=== PATIENT | male | born 1975 ===

== ENCOUNTER 2018-01-21 22:18 | Emergency (ER) | payer OTHER ==
--- NOTE | 2018-01-22 00:12 | ED PDOC ---
HPI: Abdomen Time Seen by Provider: 01/21/18 22:28 Chief Complaint (Nursing): Abdominal Pain Chief Complaint (Provider): Abdominal Pain History Per: Patient History/Exam Limitations: no limitations Onset/Duration Of Symptoms: Days (x8) Current Symptoms Are (Timing): Still Present Location Of Pain/Discomfort: LLQ Additional Complaint(s): 42 y/o male presents to the ED complaining of constipation, onset eight days ago. Patient reports of taking some kind of liquid medication for symptoms yesterday. Patient had a little diarrhea but still feels constipated. Patient reports he has not had a bowel movement today. Patient also complains of suprapublic and left lower quadrant abdominal pain. Denies black or bloody stools, fever, chills, nausea, vomiting, decreased appetite, and urinary symptoms. PMD: None Provided Past Medical History Reviewed: Historical Data, Nursing Documentation, Vital Signs Vital Signs: Last Vital Signs Temp 97.9 F 01/22/18 01:24 Pulse 82 01/22/18 01:24 Resp 16 01/22/18 01:24 BP 138/78 01/22/18 01:24 Pulse Ox 97 01/22/18 04:26 - Medical History PMH: No Chronic Diseases - Surgical History Surgical History: No Surg Hx - Family History Family History: States: Unknown Family Hx - Social History Current smoker - smoking cessation education provided: No Alcohol: None Drugs: Denies - Home Medications Home Medications: Ambulatory Orders Medication Instructions Recorded Docusate Sodium [Dulcolax Stool 100 mg PO DAILY #12 capsule 01/22/18 Softener] Sod Phos,M-B/Na Phos,Di-Ba [Fleet 133 ml RC DAILY #5 enema 01/22/18 Enema] - Allergies Allergies/Adverse Reactions: Allergies Allergy/AdvReac Type Severity Reaction Status Date / Time No Known Allergies Allergy Verified 01/21/18 22:25 Review of Systems ROS Statement: Except As Marked, All Systems Reviewed And Found Negative (as per HPI) Constitutional: Negative for: Fever, Chills Gastrointestinal: Positive for: Diarrhea (1 episode), Constipation. Negative for: Nausea, Vomiting, Melena, Hematochezia, Other (decreased appetite ) Genitourinary Male: Negative for: Dysuria, Hematuria Physical Exam - Reviewed Nursing Documentation Reviewed: Yes Vital Signs Reviewed: Yes - Physical Exam Appears: Positive for: Non-toxic, No Acute Distress Head Exam: Positive for: ATRAUMATIC, NORMOCEPHALIC Skin: Positive for: Warm, Dry Cardiovascular/Chest: Positive for: Regular Rate, Rhythm. Negative for: Murmur Respiratory: Negative for: Accessory Muscle Use, Respiratory Distress Gastrointestinal/Abdominal: Positive for: Normal Exam, Bowel Sounds (normoactive ), Soft, Tenderness (to palpation in left lower quadrant ). Negative for: Mass , Distended, Guarding, Rebound Rectal: Positive for: Normal Exam (witnessed by JORDAN Kenny at bedside), Rectal Tone Is: (normal ). Negative for: Other (rectal impaction, No stool palpable ) Neurologic/Psych: Positive for: Alert. Negative for: Motor/Sensory Deficits - ECG O2 Sat by Pulse Oximetry: 97 (RA) Pulse Ox Interpretation: Normal Medical Decision Making Medical Decision Making: Time: 2331 Impression: Constipation Plan: -- Obstructive Series XR -- Abdominal Obstructive Series X-Ray demonstrates copious amounts throughout colon. No free air. No air fluid levels -- Fleet Enema 135 ml [place] ___ Scribe Attestation: Documented by Cornell Rodriguez acting as a scribe for Dr. Halle Reyes. Provider Scribe Attestation: All medical record entries made by the Scribe were at my direction and personally dictated by me. I have reviewed the chart and agree that the record accurately reflects my personal performance of the history, physical exam, medical decision making, and the department course for this patient. I have also personally directed, reviewed, and agree with the discharge instructions and disposition. Disposition - Clinical Impression Clinical Impression: Constipation - Disposition Disposition: Transfer of Care Disposition Time: 00:00 Condition: STABLE Prescriptions: Docusate Sodium [Dulcolax Stool Softener] 100 mg PO DAILY #12 capsule Sod Phos,M-B/Na Phos,Di-Ba [Fleet Enema] 133 ml RC DAILY #5 enema Print Language: ICELANDIC Patient Signed Over To: Vickey Cyr Handoff Comments: Pending relief of constipation
--- NOTE | 2018-01-22 01:06 | ED PDOC ---
- ECG O2 Sat by Pulse Oximetry: 97 (RA) Pulse Ox Interpretation: Normal Medical Decision Making Medical Decision Making: Time: 0000 -- Patient endorsed to me by Dr. Reyes, pending bowel movement. Time: 0117 -- Patient had three bowel movements and is feeling much better. Scribe Attestation: Documented by Cornell Rodriguez acting as a scribe for Dr. Vickey Cyr MD. Provider Scribe Attestation: All medical record entries made by the Scribe were at my direction and personally dictated by me. I have reviewed the chart and agree that the record accurately reflects my personal performance of the history, physical exam, medical decision making, and the department course for this patient. I have also personally directed, reviewed, and agree with the discharge instructions and disposition. Disposition - Clinical Impression Clinical Impression: Constipation - POA Present On Arrival: None - Disposition Referrals: [facility] [Outside] Disposition: Routine/Home Disposition Time: 01:17 Condition: IMPROVED Prescriptions: Docusate Sodium [Dulcolax Stool Softener] 100 mg PO DAILY #12 capsule Sod Phos,M-B/Na Phos,Di-Ba [Fleet Enema] 133 ml RC DAILY #5 enema Instructions: Constipation in Adults Forms: [facility] (Swedish) Print Language: URDU
[2018-01-22 01:25] VITALS: BP 138/78; PULSE 82; RESP 16; TEMP 97.9
[2018-01-22 04:26] VITALS: O2SAT 97
--- NOTE | 2018-01-22 08:26 | RAD ---
Date of service: 01/21/2018 PROCEDURE: Radiographs of the chest and abdomen (obstructive series) HISTORY: abd pain r/o sbo COMPARISON: No prior. TECHNIQUE: AP radiograph of the chest, with upright and supine radiographs of the abdomen. FINDINGS: CHEST: Lungs: No acute pulmonary disease bilaterally. Calcified granuloma identified inferior left lung zone laterally. Cardiovascular: Normal size heart. No pulmonary vascular congestion. Pleura: No pleural fluid. No pneumothorax. Other findings: None. ABDOMEN AND PELVIS: Bowel: Unremarkable bowel gas pattern. No evidence of mechanical obstruction. Free air: None. Bones: Unremarkable. Other findings: None. IMPRESSION: Unremarkable radiographs of chest and abdomen. No evidence of mechanical bowel obstruction.
== END 2018-01-22 01:25 | disposition home or self-care (01) ==
LOC: H.ER 22:18
DX: K59.00 Constipation, unspecified (principal)